=== PATIENT | male | born 1990 | race Caucasian/White ===

== ENCOUNTER 2023-05-29 05:47 | Emergency (ER) | payer SELFPAY | END 2023-05-29 06:43 | disposition home or self-care (01) | LOC: JD.ED 05:47 | DX: S20.211A Contusion of right front wall of thorax, initial encounter (principal); Z91.013 Allergy to seafood; W00.9XXA Unspecified fall due to ice and snow, initial encounter | CPT/HCPCS: 71101-26-RT; 71101-RT; 99282; 99283 ==